=== PATIENT | female | born 1995 | race Caucasian/White ===

== ENCOUNTER 2019-02-26 15:14 | Outpatient (CLI) | payer BC ==
[~2019-02-26 15:14] MED LIST: Gadobenate Dimeglumine 529 MG/1 ML (20ML VIAL) ONE
[2019-02-26 16:02] LABS: Estimated GFR-MDRD - POC Greater than 90
--- NOTE | 2019-02-26 16:42 | MRI ---
[facility] brain with and without contrast: DATE: 02/26/2019 HISTORY: 23-year-old female with migraine with aura without status migrainosus TECHNIQUE: Multiplanar, multisequence MRI of the brain obtained pre and post IV injection of gadolinium based co ntrast agent. FINDINGS: The ventricles are normal in size and configuration. There is no midline shift or any other evidence of mass effect. There is no extra-axial fluid collection. There is no intra-axial signal abnormality, abnormal enhancement, mass, recent hemorrhage, or restricted diffusion. There is no Chiari I malform ation. IMPRESSION: Normal
== END 2019-02-26 15:15 | disposition home or self-care (01) ==
LOC: BICMRI 15:14
DX: G43.909 Migraine, unspecified, not intractable, without status migrainosus (principal)
CPT/HCPCS: 70553; 82565; A9577